=== PATIENT | female | born 1955 | race Caucasian/White ===

== ENCOUNTER → 2018-07-13 | Outpatient (CLI) | payer BC ==
[~2018-07-13] MED LIST: ALBU8.5H12 IH; Advair; BARIUM SULFATE 176 GM BTL PO ONE; BARIUM SULFATE 340 GM POWD ONE; BEN100 PO; CEPH-13 PO; CIP500 PO; FLUT1DIS27 IH; KET10 PO; MUPI22OI TP; OMEP40CA45 PO; ONDA4TAB PO; OXYC-865 PO; PIR10 PO; PROM-110 PO; TAMS0.4C25 PO
--- NOTE | 2018-07-13 11:51 | RADIOLOGY IMAGING REPORT ---
FACILITY: [facility] [place] PATIENT NAME: Tess Morillo : 1955 MR: [id number] V: [id number] EXAM DATE: ORDERING PHYSICIAN: FLORENTIN BURT TECHNOLOGIST: Location: [facility] Patient: Tess Morillo : 1955 Visit/Account:[id number] Date of Sevice: 07/13/2018 Exam type: XR UPPER GI SERIES W/O KUB History: GERD Comparison: None. Findings: Double contrast upper GI series was performed with thick and thin barium and air contrast. There is a small hiatal hernia present. A very large amount of gastroesophageal reflux was observed to the le ebenezer of the hypopharynx. No evidence of mucosal erosion or significant esophageal narrowing. No abno rmality of the stomach duodenal bulb or duodenal C-loop was seen.. The fluoroscopy dose area product was 466.88 micro-Solorzano per meter squared IMPRESSION: 1. Small hiatal hernia with a very large amount of gastroesophageal reflux to the level of the hypop harynx. No significant mucosal erosion or significant esophageal narrowing identified. The remainder the upper GI series was unremarkable Report Dictated By: Jia Orantes MD at 07/13/2018 11:43 AM Report E-Signed By: Jia Orantes MD at 07/13/2018 11:46 AM WSN:[email or web address]
== END ==
LOC: RAD 03:38
PROVIDERS: ATTEND Family Medicine
DX: K44.9 Diaphragmatic hernia without obstruction or gangrene (principal); K21.9 Gastro-esophageal reflux disease without esophagitis
CPT/HCPCS: 74240

== ENCOUNTER → 2018-10-16 | Outpatient (CLI) | payer BC ==
[~2018-10-16] MED LIST changes: -BARIUM SULFATE 176 GM BTL PO ONE; -BARIUM SULFATE 340 GM POWD ONE
--- NOTE | 2018-10-16 15:46 | RADIOLOGY IMAGING REPORT ---
FACILITY: [facility] [place] PATIENT NAME: Tess Morillo : 1955 MR: [id number] V: [id number] EXAM DATE: [id number] ORDERING PHYSICIAN: FLORENTIN BURT TECHNOLOGIST: Location: [facility] Patient: Tess Morillo : 1955 Visit/Account:[id number] Date of Sevice: 10/16/2018 Exam type: CHEST PA LAT History: Asthma abnormal lung sounds Comparison: None. Findings: The lungs are free of acute effusions, infiltrates or edema. The cardiac silhouette is normal in siz e. The trachea is in midline. There are spondylotic changes of the thoracic spine. IMPRESSION: 1. No acute cardiopulmonary process is seen Report Dictated By: Jia Orantes MD at 10/16/2018 3:41 PM Report E-Signed By: Jia Orantes MD at 10/16/2018 3:42 PM WSN:[email or web address]
== END ==
LOC: RAD 11:52
PROVIDERS: ATTEND Family Medicine
DX: R91.8 Other nonspecific abnormal finding of lung field (principal); J45.909 Unspecified asthma, uncomplicated
CPT/HCPCS: 71046

== ENCOUNTER → 2018-12-15 | Outpatient (CLI) | payer BC ==
--- NOTE | 2018-12-16 17:00 | RADIOLOGY IMAGING REPORT ---
FACILITY: [facility] PATIENT NAME: KRISHNA PORTILLO : [id number] MR: [id number] V: [id number] EXAM DATE: [id number] ORDERING PHYSICIAN: FLORENTIN BURT TECHNOLOGIST: [place] Collier PROCEDURE: BILATERAL DIGITAL SCREENING MAMMOGRAM WITH CAD ASSISTED INTERPRETATION & 3D TOMOSYNTHESIS REASON FOR STUDY: Screening FAMILY HISTORY OF BREAST CANCER: Maternal Aunt BREAST PROCEDURES/TREATMENTS: None COMPARISON: None VIEWS OBTAINED: Bilateral 2D & 3D full field CC & MLO projections BREAST DENSITY: The breasts are almost entirely fatty. MAMMOGRAM FINDINGS: There is no demonstration of malignant appearing mass, malignant appearing calcifications or other secondary sign of malignancy in either breast. IMPRESSION: BIRADS 1: Negative. DIAGNOSTIC CATEGORY 1--NEGATIVE. RECOMMENDATIONS: ROUTINE MAMMOGRAM AND CLINICAL EVALUATION. Dictated by: Jia Orantes M.D. on 12/15/2018 at 16:54 Transcribed by: LUIS E on 12/16/2018 at 13:21 Approved by: Jia Orantes M.D. on 12/16/2018 at 16:57 [facility]
== END ==
LOC: MAMO 00:59
PROVIDERS: ATTEND Family Medicine
DX: Z12.31 Encounter for screening mammogram for malignant neoplasm of breast (principal)
CPT/HCPCS: 77063; 77067